=== PATIENT | female | born 2000 | race Caucasian/White ===

== ENCOUNTER 2023-03-25 00:06 | Inpatient (IN) | payer BC, MEDICAID, SELFPAY ==
[2023-03-25] VITALS (216 sets, daily range): BP systolic 80–156; BP diastolic 43–123; PULSE 25–178; RESP 18; TEMP 36.6–37.2; O2SAT 82–100; BMI 28.0
[2023-03-25 01:03] LABS: Basophils Percent Auto 0.3 % (0.2-1.2); Eosinophils Percent Auto 0.1 % (0-4.4); Hemoglobin 11.9 g/dL (12.0-15.0); Immature Granulocyte Absolute 0.02 K/mm3 (0.00-0.031); Immature Granulocyte Percent A 0.3 % (0-0.5); Lymphocytes Absolute Auto 2.29 K/mm3 (0.9-3.2); Lymphocytes Percent Auto 30.1 % (18.3-44.2); Mean Corpuscular Hemoglobin 33.1 pg (26-34); Mean Corpuscular Volume 97.2 fl (80-100); Mean Platelet Volume 11.9 fl (7.4-10.4); Monocytes Absolute Auto 0.7 K/mm3 (0.1-0.6); Monocytes Percent Auto 9.1 % (2.6-8.5); Neutrophils Absolute Auto 4.6 K/mm3 (1.3-6.7); Neutrophils Percent Auto 60.1 % (45.5-73.1); Platelet Count Result 135 k/mm3 (150-375); Red Cell Distribution Width 12.7 % (11.5-14.5); White Blood Count 7.6 K/mm3 (4.5-10.0)
[2023-03-25] MEDS: LACTATED RINGERS 1,000 ML 125 ML IV CONT ×3 (01:10→10:42)
[2023-03-25] MEDS: OXYTOCIN 30 UNITS/NS 500 ML 30 UNITS/500 ML BAG 6 UNITS IV CONT (01:10)
--- NOTE | 2023-03-25 01:11 | LDADM ---
This patient, Lucia Cannon, was admitted to Labor/Delivery/Recovery 105 on 03/25/23 at 00:06. Plans for labor, pain management and were discussed with patient. Patient/family oriented to hospital policies and general routines including ID bracelet, bed and alarms, visiting hours, pain management, procedures, bathroom and other care routines, personal items, smoking policy, room service/diet and guest tray routines, infant security routines, and visiting hours. Patient/Family are encouraged to report perceived risks to care and to ask questions if they do not understand what they are told or what they should do. See OBIX for further documentation.
--- NOTE | 2023-03-25 07:50 | WPDOBADMIT ---
Obstetrics - Admit Note Admission Note: record reviewed. No pertinent additions to the history and/or any subsequent changes in the physical findings that are not consistent with the expected course of the were found. IOL at 41 weeks gestation,SVE /-1 AROM large amount of clear odorless fluid, anticipate vaginal delivery Additions to the history and/or subsequent changes in the physical findings follow. None.
--- NOTE | 2023-03-25 09:37 | WPDANESEPP ---
Anes - Eval Pre Procedure Procedure: labor epidural Date/Time: 03/25/23 09:37 Surgeon: Cleveland Dominguez Preop Diagnosis: pain during labor Pre Op Diagnosis: IOL Patient Data Age: 22 Gender: F Height: 1.68 m Weight: 79 kg Last Vital Signs Temp 36.8 C 03/25/23 07:47 Pulse 81 03/25/23 09:31 BP 133/72 03/25/23 09:31 O2 Del Method Room Air 03/25/23 06:37 Allergies Allergy/AdvReac Type Severity Reaction Status Date / Time clindamycin Allergy Hives Verified 02/14/23 12:40 Home Medications Medication Instructions Recorded Confirmed Type ferrous sulfate 325 mg (65 mg 325 mg PO DAILY 02/14/23 02/14/23 History iron) tablet prenat.vits,brian,pga-ylhw-pxypc 1 tablet 02/14/23 History Laboratory Tests 03/25/23 00:51 WBC 7.6 K/mm3 (4.5-10.0) RBC 3.60 L M/mm3 (4.2-5.4) Hgb 11.9 L g/dL (12.0-15.0) Hct 35.0 L % (37.0-47.0) MCV 97.2 fl (80-100) MCH 33.1 pg (26-34) MCHC 34.0 g/dl (32-36) RDW 12.7 % (11.5-14.5) Plt Count 135 L k/mm3 (150-375) MPV 11.9 H fl (7.4-10.4) Immature Gran % (Auto) 0.3 % (0-0.5) Neut % (Auto) 60.1 % (45.5-73.1) Lymph % (Auto) 30.1 % (18.3-44.2) [place] % (Auto) 9.1 H % (2.6-8.5) Eos % (Auto) 0.1 % (0-4.4) Baso % (Auto) 0.3 % (0.2-1.2) Lymph # (Auto) 2.29 K/mm3 (0.9-3.2) [place] # (Auto) 0.7 H K/mm3 (0.1-0.6) Eos # (Auto) 0.0 K/mm3 (0-0.3) Baso # (Auto) 0.0 K/mm3 (0.0-0.1) Abs Immat Gran (auto) 0.02 K/mm3 (0.00-0.031) Absolute Neuts (auto) 4.6 K/mm3 (1.3-6.7) Absolute Nucleated RBC 0.0 K/mm3 (0.0-0.012) Nucleated RBC % 0.0 % (0.0-0.2) RPR Pending Blood Type O Positive Antibody Screen Negative Patient hx anesthesia problems: none Family hx anesthesia problems: none Results Review: All pre-operative results and documents have been reviewed as part of the pre-operative evaluation. [facility] Family History Family History Other Patient denies significant medical history Social History Social History Smoking status: Former smoker Tobacco type: e-cigarettes/vaping Second hand tobacco smoke exposure: No Substance use: never Lack of Transportation: No Lack of Food: Never True Current Housing: I Have Housing Concerned About Future Housing: No Difficulty Paying Gas/Electric Bills: No Difficulty Paying for Meds: No Currently Unemployed: No Education: High School Diploma/GED Difficulty w/ Childcare or Family Care: No Spiritual care concerns: No Exam Day of Procedure 03/25/23 09:37 Patient weight: normal Heart: regular rate and rhythm Lungs: clear to auscultation Airway: Mallampati scale class II Neurological: alert and oriented
[2023-03-25 10:30] LABS: Rapid Plasma Reagin Non-Reactive (NonReactive)
--- NOTE | 2023-03-25 16:31 | PM.OBPRVD ---
OB - Delivery Note Procedure Delivery date: 03/25/23 Procedure: Induction method: AROM and Per Pitocin Protocol Route of delivery: Specimen: No Quantitative Blood Loss (ml): 125 Anesthesia type: Epidural Disposition: Floor Baby Date of : 03/25/23 Time of : 04:20 Weeks of gestation at delivery: 41 Infant gender: Female presentation: vertex position: Right Occiput Anterior Placenta delivery description: Spontaneous Cord Vessel Description: 3 Vessels, Nuchal Cord, Loose (x1), Clamped/Cut and Delayed Cord Clamping score one minute: 8 score five minutes: 8 Narrative: mother and baby skin to skin in stable condition
[2023-03-25] MEDS: OXYTOCIN 30 UNITS/NS 500 ML 30 UNITS/500 ML BAG 125 UNITS IV CONT (16:50)
[2023-03-25] MEDS: IBUPROFEN 600 MG TABLET PO (18:33)
--- NOTE | 2023-03-25 19:18 | PC.NURSE ---
Patient transferred to post room #281 via wheel chair. Support person present. Oriented to unit, room, information board, rooming in, admission packet and security measures. Patient verbalizes understanding.
[2023-03-26 00:15] VITALS: BP 126/74; PULSE 69; RESP 16; TEMP 36.6; O2SAT 98
[2023-03-26] MEDS: ACETAMINOPHEN 325 MG TABLET 650 MG PO ×3 (00:15→17:06)
[2023-03-26 03:50] VITALS: BP 110/72; PULSE 61; RESP 16; TEMP 36.7; O2SAT 99
[2023-03-26] MEDS: IBUPROFEN 600 MG TABLET PO (04:03)
[2023-03-26 04:44] LABS: Hematocrit 34.1 % (37.0-47.0); Hemoglobin 11.4 g/dL (12.0-15.0)
--- NOTE | 2023-03-26 07:13 | P.PNOB_ITS ---
OB - PN: Subj Subjective Date/time seen: 03/26/23 07:13 Patient comments: no complaints and pain well controlled baby status: doing well [place] feeding status: exclusively breast feeding Narrative: would like to see today. OB - PN: Obj Data Labs 03/26/23 03:53 Labs: Laboratory Results - last 24 hr 03/25/23 03/26/23 00:51 03:53 Hgb 11.4 L Hct 34.1 L RPR Non-reactive OB - PN A/P Plan day: 1 Plan: routine care Comments: consultation today home tomorrow Time Spent With Patient Time: Total time spent is greater than 50% in coordination of care (as documented) at patient's floor/unit and/or counseling patient: Time with patient: less than 15 minutes Exam Narrative: NAD abdomen soft, nontender, fundus firm below the umbilicus Extremities nontender, 1+ edema
--- NOTE | 2023-03-26 07:38 | WPDANLDPN2 ---
Anes-Prog Note L&D Date/Time: 03/26/23 07:38 Comfortable throughout: labor and delivery Neuraxial method: epidural Epidural/Spinal procedure site: clean & non-tender Neuro status: Neuro function grossly intact. Cardiovascular status: normal Respiratory status: normal Airway patency: baseline Mental status: baseline Post-Op hydration status: normal Vital Signs: Last Vital Signs Temp 36.7 C 03/26/23 03:50 Pulse 61 03/26/23 03:50 Resp 16 03/26/23 03:50 BP 110/72 03/26/23 03:50 Pulse Ox 99 03/26/23 03:50 O2 Del Method Room Air 03/26/23 03:50 Pain score (VAS): 07/17 I/O: Intake & Output 03/25/23 03/25/23 03/26/23 15:59 23:59 07:59 Intake Total 1999 Output Total 725 Balance 1999 - Post-procedural complaints: none Patient feedback: Patient satisfied with anesthetic care.
[2023-03-26 07:40] VITALS: BP 119/65; PULSE 69; RESP 16; TEMP 37; O2SAT 97
[2023-03-26] MEDS: MULTIVIT/MIN/PREN/FOL AC/IRON TABLET 1 TAB PO (08:37)
[2023-03-26] MEDS: DOCUSATE SODIUM 100 MG CAPSULE PO (08:38)
[2023-03-26] MEDS: WITCH HAZEL 40 PADS 1 PAD TOPICAL (08:41)
--- NOTE | 2023-03-26 09:52 | PC.NURSE ---
904 - 10 Introductions were made, then consulted with patient to assess needs related to . Mother led the conversation with her?plans to feed?her infant, the?experience so far with latching infant without pain. Infant appears content at this time with hands and face relaxed. Resources provided for inpatient with name written on the white board. Mother voiced understanding of information and will call if there is a request for assistance. [id number] Consulted with patient to assess needs related to after mother called for assistance. Mother works well with her infant demonstrating the latched to the left breast using cross cradle supporting with the C-hold. Reviewed working with infant, supporting breast and how to protect the nipples with an optimal deep latch, good positioning, and good hand washing. Mother states the latch feels pinchy . Demonstrated how to detach from the breast. Nipple is misshaped and blisters on the tip are visualized. We attempted to latch infant a few more times using cross cradle and infant cause mother pain with misshaped nipples each time so was placed upright [id number] on mothers chest. Nipple care reviewed with optimal latch, good positioning and once feeding cues are visualized mother agreed to attempt the football positioning. Reviewed positioning and alignment, supporting breast, off-centered (asymmetrical latch) and leading with the chin with big, open, wide gape. latched optimally to the left breast in football position. Education given to mother of how to visualize suck/swallow ratios and listen for drinking at the breast. was able to maintain latch without discomfort to mother. Encouraged understanding the benefits of skin to skin, responding to feeding cues, frequencies of feeding 8-12 times in 24 hours (approximately 2-3 hours), duration of feedings, milk production, intake/output feeding sheet, preventing infection using clean hands when touching the breast and signs of adequate intake encouraging swallowing at the breast. Father of baby assisting with feeding mother breakfast, resources used to facilitate learning were used from the tool and mom/baby guide is in the room. Mother voiced understanding of the education shared, to call for assistance if the infant does not latch or if there is discomfort with with the next feeding. Reported to the primary RN.
[2023-03-26 12:06] VITALS: BP 123/74; PULSE 71; RESP 18; TEMP 37.2; O2SAT 98
[2023-03-26 19:45] VITALS: BP 123/78; PULSE 61; RESP 16; TEMP 37.6; O2SAT 98
[2023-03-27] MEDS: IBUPROFEN 600 MG TABLET PO ×2 (02:31→08:24)
--- NOTE | 2023-03-27 07:26 | PM.OBPNVD ---
OB - PN: Subj Subjective Date/time seen: 03/27/23 07:26 doing well pp day 2 plan d/c home OB - PN: Obj Data Labs 03/26/23 03:53 OB - PN A/P Plan day: 2 Plan: routine care and discharge home Time Spent With Patient Time: Total time spent is greater than 50% in coordination of care (as documented) at patient's floor/unit and/or counseling patient: Review of Systems Review of Systems: All systems reviewed & are unremarkable except as noted in HPI and below Exam Const: General: cooperative and healthy appearing Chest: Chest palpation & inspection: normal inspection of the chest Resp: Effort & Inspection: normal respiratory effort Cardio: Rate: regular rate Rhythm: regular rhythm GI: Other: soft Skin: General skin exam: normal color
--- NOTE | 2023-03-27 07:31 | PM.OBDSVD ---
DS: Admitting Diagnosis Discharge Date 03/27/23 Admitting Diagnosis IOL DS: Discharge Diagnosis Discharge Diagnosis (1) Vaginal delivery: Code(s): O80 - Encounter for full-term uncomplicated delivery Status: Acute OB - DS: Summary OB Procedures : None OB Procedures Intrapartum: Spontaneous Vag Delivery OB Procedures: : None Time Spent with Patient Time attestation: Total time spent providing and/or coordinating discharge services: Discharge Plan Discharge Attending physician on discharge: Kapil Dominguez Consulting providers: Kelin Salas Discharging Clinician: Kelin Salas Patient Disposition: Home, Self-Care Activity: pelvic rest Diet: regular Discharge Instructions: Education: Mom and Baby Guide Given to: Mother Follow-Up: Call your delivering provider's office for an appointment to be seen in: 4 Weeks Mom and baby should come to [facility] for the follow-up appointment. Appointment Date/Time: March 28, 2023 at 9:00 am What to expect at your follow-up visit: Blood Pressure Check Call [phone] if you are unable to keep your appointment time. BREAST CARE: * Wear a snug supportive bra. * For engorgement discomfort: Breast Feeding: * Apply warm moist washcloths * Express milk as needed to relieve engorgement * Wear loose clothing Bottle Feeding: * May apply ice packs * For sore nipples: * Identify correct latch-on * Apply warm moist washcloths before and after nursing * Air dry nipples after nursing * May apply Lansinoh cream to nipples /PERINEAL CARE: * Until bleeding stops, use your shayy bottle after urinating * Change your pad frequently throughout the day * You may take sitz baths several times a day (fill your bathtub with warm water and soak for 20 minutes.) Do NOT bathe in the water * No tub baths until seen by your physician - You may shower ACTIVITY: * Rest as much as possible. * Do not exercise or lift anything heavier than your baby (such as laundry or other children.) * Avoid stairs or driving as much as possible. * Do not put anything into the vagina. No douching, tampons, or sexual activity until seen by physician. NOTIFY PHYSICIAN IF YOU HAVE ANY QUESTIONS OR IF ANY OF THE FOLLOWING SYMPTOMS OCCUR: * If your perineum becomes red, swollen, or more painful than what you have experienced in the hospital. * If your vaginal bleeding becomes foul smelling. * If your vaginal bleeding becomes more heavy than a period or if your bleeding changes from pink to bright red. However, you may pass an occasional walnut-sized clot once or twice for the first week . * If you experience a sharp, shooting pain in you calves. * If you discover a hard, reddened area on your breast or if you experience flu-like symptoms. * If you have a fever of 100.4 or greater DIET: * Eat regular, well-balanced meals. * Drink plenty of fluids daily. If , drink to thirst. Patient Instructions: Antibiotic Form, How to Stop Smoking (DC) Stand Alone Forms: General Discharge Information Follow-up/Referrals: Kelin Salas CNM [Certified Nurse Cath Lab Tech] - 4 Weeks Discharge Medications: New ibuprofen 600 mg Tablet 600 mg PO Q6H PRN (Reason: Cramping) Qty: 30 0RF Continued ferrous sulfate 325 mg (65 mg iron) Tablet 325 mg PO DAILY #2 Tablet 1 tablet Date of admission: 03/25/23 00:06 Primary Care Provider: Orlando Cline Admitting Provider: Kapil Dominguez Attending physician on admission: Kapil Dominguez Condition: Stable
--- NOTE | 2023-03-27 08:00 | PC.NURSE ---
PT introductions made and plan of care discussed per post pain management, breast feeding, daily care activities and pending discharge to home. PT and spouse both recipients of such instructions and no barriers to learning identified at this time. PT received such instructions this shift via one to one discussion, mom baby care guide and demonstrations. PT verbalized understanding of such care.
[2023-03-27 08:15] VITALS: BP 137/80; PULSE 88; RESP 16; TEMP 37.1; O2SAT 97
[2023-03-27] MEDS: MULTIVIT/MIN/PREN/FOL AC/IRON TABLET 1 TAB PO (08:24)
[2023-03-27] MEDS: ACETAMINOPHEN 325 MG TABLET 650 MG PO (08:26)
[2023-03-27] MEDS: DOCUSATE SODIUM 100 MG CAPSULE PO (08:26)
[2023-03-27 08:28] VITALS: PULSE 88; RESP 16; O2SAT 97
--- NOTE | 2023-03-27 14:32 | PC.NURSE ---
PT discharged to home ambulatory accompanied by spouse and and walked to waiting car. Follow up appts confirmed
--- NOTE | 2023-03-27 16:44 | PC.NURSE ---
[phone] Consulted with patient to assess needs related to . Mother led conversation with her experience with feeding baby so far. Reviewed working with infant, supporting breast and how to protect the nipples with an optimal deep latch, good positioning, and good hand washing. Reviewed positioning and alignment, supporting breast, off-centered (asymmetrical latch) and leading with the chin with big, open, wide gape. latched optimally to the left breast in football position. Education given to mother of how to visualize suck/swallow ratios and listen for drinking at the breast. was able to maintain latch without discomfort to mother. Nipple care reviewed with optimal latch, good positioning and using clean hands when feeding her infant and touching her breast. Mother is feeding appropriately for growth of infant and understands stimulating infant to eat if needed. Infant has had appropriate feedings in the last 24 hours meets the outcomes for weight, output and jaundice at this time. Mother states she is confident to continue effectively her at home, when to call for assistance and denies any additional assistance or education at this time. Reinforced understanding of milk production, transition of milk, signs of adequate intake, transition of stool, prevention/relief of engorgement, plugged ducts, mastitis, responsive watching for feeding cues, the different methods of stimulating infant to breastfeed 2-3 hours after the start of the last feeding, community resources and when to call a provider using the resource of the mom and baby guide. Parents voiced understanding of the education shared. Reported to the primary RN.
[2023-03-28 08:53] VITALS: BP 128/73; PULSE 64; RESP 20; TEMP 36.6; O2SAT 98
== END 2023-03-27 14:32 | disposition home or self-care (01) | DRG 807 ==
LOC: ANHLDR 05:10 → ANHOB2 19:23
PROVIDERS: Advanced Practice Midwife; Admitting Provider Obstetrics & Gynecology; PCP Pediatrics; Visit Provider Obstetrics & Gynecology
DX: O69.81X0 Labor and delivery complicated by cord around neck, without compression, not applicable or unspecified (principal); Z37.0 Single live birth; Z3A.41 41 weeks gestation of pregnancy
CPT/HCPCS: 36415; 85014; 85018; 85025; 86592; 86850; 86900; 86901; A9270; J2590; J2795; J7120

== ENCOUNTER 2025-02-05 05:58 | Inpatient (IN) | payer BC, MEDICAID, SELFPAY ==
[2025-02-05] VITALS (44 sets, daily range): BP systolic 103–159; BP diastolic 49–70; PULSE 62–105; RESP 14–18; TEMP 36.2–37.4; O2SAT 94–100; BMI 25.2
--- NOTE | ~2025-02-05 | XR_ITS ---
XR abdomen/kub 1V 02/05/2025 07:32 INDICATION: Unable to count before surgery TECHNIQUE: KUB COMPARISON: None FINDINGS: Bowel gas pattern is nonspecific. No radiopaque foreign bodies identified. There is no evid ence of free air, mass, organomegaly, ascites or obstruction. No abnormal calculi are seen. The bon es appear intact. IMPRESSION: 1: No acute abdominal abnormality identified. Reviewed, dictated and finalized at location B.
--- OUTSIDE RECORDS SUMMARY | 2025-02-05 06:04 | XMS_ITS ---
Author Organization [facility] Address [address] [place] [address] Care Team Providers Care Twist Tester Name Role Phone Dr. Orlando Cline Primary Care Provider [phone] Migration, Provider Unavailable Unavailable Allergies Allergen (clinical drug ingredient) Drug/Non Drug Allergy documented on EMR Reaction Allergy Type Onset Date Status azithromycin Zithromax Hives Drug Allergy 06/10/2023 Act herb REASON FOR VISIT EMR-Yomi Encounters Encounter Location Date Provider Diagnosis [facility] [address] [place] [address] 06/07/2024 Provider Migration Plan Of Treatment No Information Progress Notes * Lucia CANNONDOB:2000 ([age] yo F)Acc No.[id number]:06/07/2024 Patient: Lucia HIGGINS :2000 A ge:23 Y S ex:Female Phone: Address:[facility] [address], [place], [address] Subjective: * Chief Complaints: * E MR-Yomi * OB History: M igrated OBHistory P regnancy History:: Anesthesia (Ans.): Epidural, D elivery Date (Delivery Date): 03/25/23, G A (wks) (GA): 41 w _ d, N umber of deliveries 37 weeks or greater (Full Term): 1, T ype of delivery (Type): Vaginal . * Allergies: Z ithromax: Hives - Allergy - Onset Date 06/10/2023 * * Date:
--- OUTSIDE RECORDS SUMMARY | 2025-02-05 06:04 | XMS_ITS | Patient Health Record ---
Author Organization [facility] Address [address] [place] [address] Care Team Providers Care Reading Specialist Name Role Phone Dr. Orlando Cline Primary Care Provider [phone] Migration, Provider Unavailable Unavailable Reason For Referral No Information Problems Problem Type SNOMED Code ICD Code Onset Dates Problem Status W/U Status Risk Notes Problem Depressive disorder (11830677) Depressive disorder, not elsewhere classified (311) 8 Active confirmed Problem Generalized abdominal pain (346480462) Abdominal pain, generalized (789.07) 9 Active confirmed Problem Mild major depression, single episode (34346575) Major depressive disorder, single episode, mild (F32.0) 3 Active confirmed Problem Ganglion cyst (494268920) Ganglion, unspecified site (M67.40) 4 Active confirmed Problem Anorexia (82086301) Anorexia (R63.0) 4 Active confirmed Problem Abnormal glucose level (141167614) Other abnormal glucose (R73.09) 4 Active confirmed Problem Abnormal level of blood mineral (870822537) Abnormal level of blood mineral (R79.0) 4 Active confirmed Problem Blood chemistry abnormal (976982666) Other specified abnormal findings of blood chemistry (R79.89) 4 Active confirmed Problem Adult health examination (612779288) Encounter for general adult medical examination without abnormal findings (Z00.00) 3 Active confirmed Problem Dietary management surveillance (583473811) Dietary counseling and surveillance (Z71.3) 4 Active confirmed Problem Major depression, single episode (98849344) Major depressive disorder, single episode, unspecified (296.20) 9 Problem resolved confirmed Problem Slow transit constipation (98157657) Slow transit constipation (564.01) 8 Problem resolved confirmed Problem Malaise and fatigue (822701568) Other malaise and fatigue (780.79) 8 Problem resolved confirmed Problem Fatigue (30761934) Other fatigue (R53.83) 8 Problem resolved confirmed Problem Constipation (84776149) Constipation, unspecified (K59.00) 8 Problem resolved confirmed Problem Major depression, single episode (34564445) Major depressive disorder, single episode, unspecified (F32.9) 9 Problem resolved confirmed Encounters Encounter Location Date Provider Diagnosis [address] [address] 06/06/2024 Provider Migration [address] [address] 06/07/2024 Provider Migration Plan Of Treatment No Information Insurance Providers Payer Name Payer Address Payer Phone Subscriber Number Group Number Insured Name Patient Relationship to Insured Coverage Start Date Coverage End Date [employer]BS[employer] [address] [place] [address] [id number] Angélica Dia Child - Insured has Financial Responsibility 3 [place] [employer] Public [employer] [facility] [address] [address] [place] [id number] Davis Lucia Self - patient is the insured 3
--- OUTSIDE RECORDS SUMMARY | 2025-02-05 06:04 | XMS_ITS ---
Author Organization [facility] Address [address] [place] [address] Care Team Providers Care Orange Peel Operator Name Role Phone Dr. Orlando Cline Primary Care Provider [phone] Migration, Provider Unavailable Unavailable REASON FOR VISIT EMR-Yomi Encounters Encounter Location Date Provider Diagnosis [facility] [address] [place] [address] 06/06/2024 Provider Migration Plan Of Treatment No Information Progress Notes * CASSANDRABernaheribertoDOB:2000 ([age] yo F)Acc No.[id number]:06/06/2024 Patient: Lucia HIGGINS :2000 A ge:23 Y S ex:Female Phone: Address: [address] , [address], [place], [address] Subjective: * Chief Complaints: * E MR-Yomi * * Date:
--- OUTSIDE RECORDS SUMMARY | 2025-02-05 06:04 | XMS_ITS | Clinical Summary ---
Author Organization [facility] Address [facility] [place] [address] Care Team Providers Care Mobile Ui Designer Name Role Phone Orlando Cline MD Primary Care Provider + [phone] Allergies Active Allergy Reactions Criticality Noted Date Comments Azithromycin Hives 02/01/2021 Medications No known medications Active Problems Problem Noted Date Diagnosed Date Behavioral disorder in pediatric patient 020 Herpes labialis 03/22/2015 Overview (07/29/2019): Note: bottom lip Date Onset: 03/22/2015 Estimated Date of Delivery Comme nts Yes 03/17/2023 Immunizations Immunization Administration Dates Next Due Dtap (Generic) 03/18/2008, 4,09/14/2003,06/17/2003, HPV 01/24/2015,06/11/2014,03/30/2014 Hepatitis A Vaccine - 2 Dose 01/24/2015,06/11/20 14 Hepatitis B 04/27/2004,06/17/2003,04/06/2003 Hib (Generic) 04/27/2004,06/17/2003,04/06/2003 MMR (Generic) 03/18/2008,01/24/2004 Meningococcal (Generic) 06/11/2014 Pneumococcal (Generic) 04/27/2004,01/24/2004,05/2003 Polio Ipv (Generic) 03/18/2008,09/14/2003,2002,04/06/2003 Tdap (Generic) 03/30/2014 Varicella Vaccine 03/30/2014,04/27/2004 Social History Tobacco Use Types Packs/Day Years Used Date Smoking Tobacco: Every Day Electronic Cigarettes Smokeless Tobacco: Never Tobacco Cessation:Ready to Q uit: Not Asked; Counseling Given: Yes Alcohol Use Standard Drinks/Week Comments Yes 0 (1 standard drink = 0.6 oz pur e alcohol) occasionally AUDIT-C Answer Date Recorded Q1: How often do you have a drink containing alc ohol? Never 10/13/2020 Average Number of Drinks Not on file 021 Frequency of Binge Drinking Not on file 02/2021 Estimated Date of Delivery Comme nts Yes 03/17/2023 Sex and Gender Information Value Date Recorded Sex Assigned at Not on file Legal Sex Female 7:51 AM CDT Gender Identity Not on file Sexual Orientation Not on file Last Filed Vital Signs Vital Sign Reading Time Taken Comments Blood Pressure 106/62 09/13/2022 3:12 PM MOTION PICTURE COMMENTATOR Pulse 97 09/13/2022 3:12 PM MOTION PICTURE COMMENTATOR Temperature 36.4 C (97.6 F) 09/13/2022 3:12 PM MOTION PICTURE COMMENTATOR Respiratory Rate 16 02/01/2021 2:09 PM CDT Oxygen Saturation 99% 09/13/2022 3:12 PM MOTION PICTURE COMMENTATOR Inhaled Oxygen Concentration - - Weight 59.4 kg (130 lb 14.4 oz) 09/13/2022 3:12 PM MOTION PICTURE COMMENTATOR Height 167.6 cm (5' 6) 09/13/2022 3:12 PM MOTION PICTURE COMMENTATOR Body Mass Index 21.13 09/13/2022 3:12 PM MOTION PICTURE COMMENTATOR Plan of Treatment Health Maintenance Due Date Last Done Comments Annual Physical 2005 Meningococcal B Vaccine (1 of 2 - Standard) 2018 Pneumococcal Vaccine: Pediatrics (0 to 5 Years) and At-Risk Patients (6 to 49 Years) (1 of 2 - PCV) 2021 04/27/2004, 01/24/2004, 06/17/2003 COVID-19 Vaccine ( - season) 2024 DTaP, Tdap and Td Vaccines (7 - Td or Tdap) 03/30/2024 03/30/2014, 03/18/2008, 04/27/2004, Additional history exists Cervical Cancer Screening Pap Smear (Age 21 to 29) Every 3 Years 08/02/2025 08/02/2022 Cervical Cancer Screening 08/02/2025 RSV Immunization or 60+ Years (1 - 1-dose 75+ series) 2077 Hepatitis B Vaccines Completed 04/27/2004, 06/17/2003, 04/06/2003 HPV Vaccines Completed 01/24/2015, 1211/2013, 03/30/2014 Meningococcal Vaccine Completed 05/10/2020, 014 Hepatitis C Completed 09/06/2022, 09/06/2022 RSV Immunizations Under 20 Months Aged Out No longer eligible based on patient's age to complete this topic Insurance [employer] [place] [employer] [facility] [employer] [facility] Care Teams Mobile Ui Designer Relationship Specialty Start Date End Date Orlando Cline MD [address] [place], [place] [phone] PCP - General PEDIATRICS 07/29/19
--- OUTSIDE RECORDS SUMMARY | 2025-02-05 06:05 | XMS_ITS ---
Author Organization [facility] Address [address] [place] [id number] Care Team Providers Care Principal Clerk Typist Name Role Phone Dr. Orlando Cline Primary Care Provider [phone] REASON FOR VISIT Cyst on palm Vital Signs Temperature 97.9 degrees Fahrenheit 01/28/20 24 Heart Rate 142 /min 01/28/2024 Oximetry 98 % 01/28/2024 Encounters Encounter Location Date Provider Diagnosis [address] [id number] 01/28/2024 Dr. Orlando Cline Ganglion, unspecified site M67.40 Assessments Encounter Date Diagnosis (ICD Code) Assessment Notes Treatment Notes Treatment Clinical Notes Section Notes 01/28/2024 Ganglion, unspecified site (ICD-10 - M67.40) Plan Of Treatment No Information Progress Notes * Lucia TRUJILLODOB:2000 ([age] yo F)Acc No.[id number]:01/28/2024 Patient: Lucia Barry Provider: Carlos A Cline MD :2000 A ge:23 Y S ex:Female Date:01/28/2024 Phone: Address:[facility] , [address], [id number] Subjective: * Chief Complaints: * C yst on palm Objective: * Vitals: H R: 142 /min, Temp: 97.9 F, Oxygen sat %: 98 %. Assessment: * Assessment: 1. G anglion, unspecified site - M67.40 S pecify :Src Diagnosis Name: Ganglion cyst * Electronic signature of Dr. Orlando Cline on 02/05/2025 at 06:04 AM CDT Sign off status: Pending * Provider: Carlos A Cline MD Date: 0 01/28/2024 Generated for Laquita carson/Samira/Maxwell on: 0 02/05/2025 06:04 AM CDT
--- OUTSIDE RECORDS SUMMARY | 2025-02-05 06:05 | XMS_ITS | Clinical Summary ---
Author Organization [facility] Address [address] [place] [address] Care Team Providers Care Technical Manager Name Role Phone Unavailable Primary Care Provider Unavailabl e Source Comments [facility],non-owned Affiliates and Associated Physician Practices is amultiple site organization consisting of ambulatory clinics and hospital sitesin [place], [place], [place] and [place]. This disclosure is being madepursuant to the Care Everywhere program and may not contain all information available regarding this patient. 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 Gender Identity Not on file Sexual Orientation Not on file Plan of Treatment Health Maintenance Due Date Last Done Comments HIV SCREENING 2017 HPV VACCINE (1 - 3-dose series) 2017 CHLAMYDIA/GONORRHEA SCREENING 2018 MENINGOCOCCAL (Group B) VACC INE SHARED DECISION-MAKING (1 of 2 - Standard) 2018 HEPATITIS C SCREENING 11/24/2020 DTAP/TDAP/TD VACCINES (1 - Tdap) 2021 HEPATITIS B VACCINE (1 of 3 - 19+ 3-dose series) 2021 COVID-19 VACCINE (1 - 2023-2 5 season) 2024 DEPRESSION SCREENING 07/08/2024 INFLUENZA VACCINE (#1) 2025 ZOSTER VACCINE (1 of 2) 2052 HIB VACCINE Aged Out No longer eligi ble based on patient's age to complete this topic MENINGOCOCCAL GROUPS A/C/Y/W VACCINE Aged Out No longer eligible b ased on patient's age to complete this topic PNEUMOCOCCAL VACCINE Aged Out No long er eligible based on patient's age to complete this topic Insurance [facility]
[2025-02-05] MEDS: LACTATED RINGERS 1,000 ML 125 ML IV CONT (06:51)
[2025-02-05] MEDS: TERBUTALINE SULFATE 1 MG/ML VIAL 0.25 MG SUB-Q (06:51)
[2025-02-05] MEDS: ceFAZolin 2 GM in SODIUM CHLORIDE 0.9% IV 50 ML 100 ML IVPB (07:01)
--- NOTE | 2025-02-05 07:01 | S_PTH ---
PATIENT: Lucia Cannon LOC: ANHOB2 U#:[id number] AGE/SX: 24/F ROOM: 282 RE02/05/[address]: Sigifredo Dominguez MD : 2000 BED: 00 DIS: 02/08/2025 SPEC #: [id number] RECD: 02/08/25 11:57 STATUS: TANIA REQ #: [id number] SPIKE: 02/05/25 07:[address]: Sigifredo Dominguez DEPT: [facility] Surgical RECD BY: Kiera Quezada ENTERED: 02/08/25 11:57 SP TYPE: Surgical OTHR DR: CHIQUITA Garcia MD Tissues: A - Placenta Procedures: Hematoxylin and Eosin Stain Gross and Microscopic Level 5
[2025-02-05 07:02] LABS: Hematocrit 33.0 % (37.0-47.0); Hemoglobin 10.6 g/dL (12.0-15.0); Immature Granulocyte Percent A 0.5 % (0-0.5); Lymphocytes Absolute Auto 2.97 K/mm3 (0.9-3.2); Mean Corpuscular HGB Conc 32.1 g/dl (32-36); Mean Corpuscular Hemoglobin 32.2 pg (26-34); Mean Corpuscular Volume 100.3 fl (80-100); Nucleated Red Blood Cells Absolute Auto 0.000 K/mm3 (0.0-0.012); Nucleated Red Blood Cells Perc 0.0 % (0.0-0.2); Platelet Count Result 179 k/mm3 (150-375); Red Blood Count 3.29 M/mm3 (4.2-5.4); White Blood Count 9.5 K/mm3 (4.5-10.0)
--- NOTE | 2025-02-05 07:29 | W.PM.OBCSD ---
OB - Delivery Note Procedure Delivery date: 02/05/25 Pre-op diagnosis: Non-Reassuring Status Post-op Diagnosis: Same Procedure Performed: Primary Surgeon: Sigifredo Dominguez MD Anesthesia type: Epidural Description of Procedure/Findings: The patient was taken the operating room.? She was prepped and draped in dorsal supine position with a leftward tilt.? This was done after spinal anesthetic was applied.? A low-transverse skin incision was made and carried down till of the fascia with the knife.? The fascial incision was made with the knife.? The fascial incision was extended laterally with Fountain scissors.? The fascia was tented upward superiorly and inferiorly the rectus muscles were dissected off bluntly.? The rectus muscles were the midline.? The preperitoneal fat and peritoneum were dissected open bluntly at the superior aspect of the rectus muscles.? The peritoneal incision was extended superior and inferior with good position of bladder.? The uterine incision was made with a scalpel down to the level of the amniotic cavity.? The amniotic cavity was entered bluntly.? The infant was delivered.? The cord was clamped and cut and the infant was handed off to waiting pediatric staff.? Cord bloods were obtained.? The placenta was removed manually.? The uterus was exteriorized.? The uterus was cleared of all clots, debris and membranes.? The uterus was closed in 0 Vicryl running lock fashion.? An imbricating over a was placed along the incision line as well.? The uterus was returned to the abdomen.? The gutters were cleared of all clots and debris.? The fascia was closed with 0 Vicryl running fashion.? The subcutaneous tissue was irrigated pinpoint bleeders were cauterized.? The skin was closed with subcuticular absorbable krysten.? The skin incision line was covered with glue.? The patient tolerated the procedure well.? She has taken recovery room in stable condition.? Sponge lap and needle counts were correct x2.? Estimated Blood Loss: 300 Complications: No immediate complications Condition: Stable Disposition: Floor
--- NOTE | 2025-02-05 07:35 | P.HP_ITS ---
H&P: HPI History of Present Illness Date/Time: 02/05/25 07:35 Chief Complaint: Term Narrative: This patient is a 24-year-old multiparous female at term who presented for induction of labor, elective induction. Immediately heart tones were nonreassuring and we moved quickly for stat delivery. The patient understands the details of the procedure. The procedure has been explained in detail. She understands the risks. She understands that injuries may occur that result in hospitalization, more surgery, and severe illness. She understands risk of hemorrhage and infection. She denies any chest pain or shortness of breath. She denies any nausea, vomiting, fever, chills. Review of Systems Review of Systems: All systems reviewed & are unremarkable except as noted in HPI and below Constitutional: Constitutional: Denies chills, Denies fatigue, Denies fever(s) and Denies weakness Eyes: Eyes: Denies blurry vision, Denies change in vision, Denies loss of peripheral vision, Denies loss of vision, Denies other visual disturbances and Denies eye pain ENT: Denies vertigo, Denies dizziness, Denies hearing loss, Denies mouth pain, Denies nasal obstruction, Denies neck mass and Denies neck pain Cardiovascular: Cardiovascular: Denies chest pain, Denies diaphoresis, Denies syncope, Denies leg edema and Denies dyspnea Respiratory: Respiratory: Denies chest congestion, Denies cough, Denies hemoptysis, Denies dyspnea and Denies wheezing Gastrointestinal: Gastrointestinal: Denies abdominal pain, Denies constipation, Denies diarrhea, Denies nausea and Denies vomiting Genitourinary: Genitourinary: Denies hematuria, Denies change in libido, Denies nocturia, Denies genital lesions, Denies flank pain and Denies urinary urgency Musculoskeletal: Musculoskeletal: Denies abnormal gait, Denies back pain, Denies myalgias, Denies arthralgias, Denies joint swelling, Denies muscle weakness and Denies neck pain Integumentary/Breasts: Skin/Breast: Denies swelling, Denies breast pain, Denies breast mass, Denies dry skin, Denies nipple discharge, Denies unusual bruising and Denies jaundice Neurologic: Denies Neuro-related abnormal movements, Denies Abnormal speech present, Denies abnormal gait, Denies behavioral changes, Denies confusion, Denies vertigo, Denies dizziness, Denies syncope, Denies loss of vision, Denies memory loss, Denies convulsions and Denies weakness Psychiatric: Psychiatric: Denies abnormal sleep pattern, Denies behavioral changes, Denies change in libido, Denies confusion, Denies depression, Denies anhedonia and Denies memory loss Endocrine: Endocrine: Reports no additional endocrine complaints, Denies change in libido and Denies fatigue Hematologic/Lymphatic: Hematologic/Lymphatic: Reports no additional hematologic/lymphatic complaints Allergic/Immunologic: Allergic/Immunologic: Reports no additional allergic/immunologic complaints and Denies wheezing [facility] Family History Family History (Updated 01/04/25 @ 13:42 by Ashtyn Caballero RN) Mother Thyroid disorder Sibling Epilepsy Sibling Anxiety Other Patient denies significant medical history Social History Social History Smoking status: Former smoker Tobacco type: e-cigarettes/vaping Second hand tobacco smoke exposure: No Substance use: never Lack of Transportation: No Lack of Food: Never True Current Housing: I Have Housing Concerned About Future Housing: No Difficulty Paying Gas/Electric Bills: No Difficulty Paying for Meds: No Currently Unemployed: No Education: High School Diploma/GED Difficulty w/ Childcare or Family Care: No Spiritual care concerns: No Meds Home Medications and Allergies Home Medications ?Medication ?Instructions ?Recorded ?Confirmed ?Type prenat.vits,brian,auq-pnqk-tllnr 1 tablet 02/14/23 History Allergies Allergy/AdvReac Type Severity Reaction Status Date / Time azithromycin Allergy Severe Hives Verified 01/04/25 13:51 Vital Signs Vital Signs - 24 hr 02/05/25 06:45 02/05/25 06:50 Pulse Oximetry 100 100 Exam Const: General: cooperative, healthy appearing, comfortable and no acute distress Orientation/consciousness: oriented to person, oriented to place and oriented to time HENMT: Head: normal to inspection Ears: external ears normal Face/Nose/Sinus: Normal external nose present and normal facial exam Face and sinus: normal facial exam Eyes: General: appearance normal, both eyes and all related structures Neck: Neck: normal visual inspection, trachea midline and supple Resp: Auscultation: clear to auscultation bilaterally, no crackles, no rales, no rhonchi and no wheezes Cardio: Rate: regular rate Rhythm: regular rhythm Heart sounds: no click, no murmurs and no rubs GI: GI Palp: No abdominal tenderness, No Soft to palpation, No Tenderness to palpation present (GI) and No Palpable mass present Auscultation: normal bowel sounds Skin: General skin exam: normal color and no rashes or lesions noted Neuro: General: oriented to person, oriented to place and oriented to time Extrem: General: normal to inspection, no joint enlargement, no clubbing, cyanosis or edema, no pedal edema and no calf tenderness Psych: Appearance: grossly normal Mental Status: mental status grossly normal Speech and movement: Normal speech and movement present H&P: Results Labs Labs: Short CBC 02/05/25 Range/Units 06:38 WBC 9.5 (4.5-10.0) K/mm3 Hgb 10.6 L (12.0-15.0) g/dL Hct 33.0 L (37.0-47.0) % Plt Count 179 (150-375) k/mm3 Assessment and Plan Assessment and plan (1) Non-reassuring status, delivered, current hospitalization: Code(s): O75.89 - Other specified complications of labor and delivery Status: Acute Plan This patient is a 24-year-old multiparous female at term who presented for induction of labor, elective induction. Immediately heart tones were nonreassuring and we moved quickly for stat delivery.
--- NOTE | 2025-02-05 07:37 | WPDHPUPDATE1 ---
History and Physical Update Update Date/Time: 02/05/25 07:37 History and Physical has been reviewed, including an updated exam of the patient. There are NO changes in the patient's condition. Risks, benefits, and alternatives have been discussed and questions answered. Patient agrees to proceed with procedure.
[2025-02-05 07:39] LABS: Syphilis IgG/IgM Antibody Non-Reactive (Nonreactive)
--- NOTE | 2025-02-05 07:39 | WPDANESEPPF ---
Anes - Initial Pre Proc Eval Date/Time: 02/05/25 07:39 Surgeon: Sigifredo Dominguez MD Pre Op Diagnosis: IOL Patient Data Age: 24 Gender: F Height: Weight: Last Vital Signs Pulse Ox 100 02/05/25 06:50 Allergies Allergy/AdvReac Type Severity Reaction Status Date / Time azithromycin Allergy Severe Hives Verified 01/04/25 13:51 Home Medications ?Medication ?Instructions ?Recorded ?Confirmed ?Type prenat.vits,brian,iqf-gjuj-lmchk 1 tablet 02/14/23 History Laboratory Tests 02/05/25 06:38 WBC 9.5 K/mm3 (4.5-10.0) RBC 3.29 L M/mm3 (4.2-5.4) Hgb 10.6 L g/dL (12.0-15.0) Hct 33.0 L % (37.0-47.0) MCV 100.3 H fl (80-100) MCH 32.2 pg (26-34) MCHC 32.1 g/dl (32-36) RDW 12.8 % (11.5-14.5) Plt Count 179 k/mm3 (150-375) MPV 11.4 H fl (7.4-10.4) Immature Gran % (Auto) 0.5 % (0-0.5) Neut % (Auto) 59.7 % (45.5-73.1) Lymph % (Auto) 31.3 % (18.3-44.2) [place] % (Auto) 7.7 % (2.6-8.5) Eos % (Auto) 0.4 % (0-4.4) Baso % (Auto) 0.4 % (0.2-1.2) Lymph # (Auto) 2.97 K/mm3 (0.9-3.2) [place] # (Auto) 0.7 H K/mm3 (0.1-0.6) Eos # (Auto) 0.0 K/mm3 (0-0.3) Baso # (Auto) 0.0 K/mm3 (0.0-0.1) Abs Immat Gran (auto) 0.05 H K/mm3 (0.00-0.031) Absolute Neuts (auto) 5.7 K/mm3 (1.3-6.7) Absolute Nucleated RBC 0.000 K/mm3 (0.0-0.012) Nucleated RBC % 0.0 % (0.0-0.2) Blood Type O Positive Antibody Screen Pending Patient hx anesthesia problems: none Family hx anesthesia problems: none Results Review: All pre-operative results and documents have been reviewed as part of the pre-operative evaluation. [facility] Family History Family History Mother Thyroid disorder Sibling Epilepsy Sibling Anxiety Other Patient denies significant medical history Social History Social History Smoking status: Former smoker Tobacco type: e-cigarettes/vaping Second hand tobacco smoke exposure: No Substance use: never Lack of Transportation: No Lack of Food: Never True Current Housing: I Have Housing Concerned About Future Housing: No Difficulty Paying Gas/Electric Bills: No Difficulty Paying for Meds: No Currently Unemployed: No Education: High School Diploma/GED Difficulty w/ Childcare or Family Care: No Spiritual care concerns: No Anes - Eval Final PreProcedure Day of Procedure 02/05/25 07:39 Patient weight: overweight Heart: tachycardia Lungs: clear to auscultation Airway: Mallampati scale class II Neurological: alert and oriented ASA classification: II Emergent: yes Anesthetic plan: proceed Anesthesia type and monitoring: general ETT and standard monitoring Results Review: All pre-operative results and documents have been reviewed as part of the pre-operative evaluation. Informed Consent: The patient's anesthetic plan and its attendant risks and benefits were discussed with the patient/family/POA. Questions were solicited and answers provided to the satisfaction of the patient/family/POA.
[2025-02-05] MEDS: MORPHINE SULFATE INJ (*CRX) 10 MG/ML AMP 3 MG IV PUSH ×4 (07:53→08:58)
[2025-02-05] MEDS: OXYTOCIN 30 UNITS/NS 500 ML 30 UNITS/500 ML BAG 125 UNITS IV CONT (08:48)
[2025-02-05] MEDS: cefoTEtan DISODIUM INJ 2 GM in DEXTROSE 5% IN WATER 50 ML IVPB ×2 (08:50→21:35)
[2025-02-05] MEDS: MORPHINE SULFATE PCA (*CRX) 30 MG/30 ML SYR IV CONT (09:26)
--- NOTE | 2025-02-05 10:38 | OBPPTRN ---
Patient transferred to post room #282 via stretcher. Support person- spouse Armando present. Oriented to unit, room, information board, rooming in, admission packet and security measures. Patient verbalizes understanding.
--- NOTE | 2025-02-05 11:02 | PC.NURSE ---
Nursery phone number provided to pt to call for updates on in lvl 2 nursery
[2025-02-05] MEDS: SIMETHICONE 80 MG TAB.CHEW PO (11:55)
[2025-02-05] MEDS: DOCUSATE SODIUM 100 MG CAPSULE PO ×2 (11:55→17:28)
[2025-02-05] MEDS: MULTIVIT/MIN/PREN/FOL AC/IRON TABLET 1 TAB PO (11:55)
[2025-02-05] MEDS: KETOROLAC 15 MG/ML VIAL (*BKC) IV PUSH ×3 (11:55→23:28)
[2025-02-05] MEDS: ACETAMINOPHEN 500 MG TABLET 1000 MG PO ×3 (11:55→23:28)
[2025-02-05] MEDS: DEXTROSE 5%/0.45% SOD CHL 1,000 ML 125 ML IV CONT ×2 (13:15→21:35)
--- NOTE | 2025-02-05 13:54 | LDADM ---
This patient, Lucia Cannon, was admitted to OB 2nd Floor Room 282 on 02/05/25 at 05:58. Plans for labor, pain management and were discussed with patient. Patient/family oriented to hospital policies and general routines including ID bracelet, bed and alarms, visiting hours, pain management, procedures, bathroom and other care routines, personal items, smoking policy, room service/diet and guest tray routines, infant security routines, and visiting hours. Patient/Family are encouraged to report perceived risks to care and to ask questions if they do not understand what they are told or what they should do. See OBIX for further documentation.
--- NOTE | 2025-02-05 17:30 | PC.NURSE ---
Breast pump provided due to [patient request]. Instructions given on cleaning, care, usage, that there should be no pain, pumping schedule for milk production, collection, and storage of human milk. Patient was assessed for correct placement, flange size, to pump for adequate milk production every 3 hours (8 times in 24 hours) 1-2 times at night. Mother voiced understanding of the education shared along with mom/baby guide and the pump measurement, flange fit handout for additional resource information. Reported to the Primary RN.
[2025-02-06 02:04] VITALS: BP 122/58; PULSE 72; RESP 18; TEMP 36.7; O2SAT 98
[2025-02-06 02:05] VITALS: RESP 18; O2SAT 98
[2025-02-06 04:30] VITALS: BP 109/53; PULSE 69; RESP 18; TEMP 36.7; O2SAT 98
[2025-02-06 05:12] LABS: Hematocrit 24.8 % (37.0-47.0); Hemoglobin 7.9 g/dL (12.0-15.0); Immature Granulocyte Percent A 0.5 % (0-0.5); Immature Platelet Fraction Pct 7.0 % (0.9-11.2); Lymphocytes Absolute Auto 1.40 K/mm3 (0.9-3.2); Mean Corpuscular HGB Conc 31.9 g/dl (32-36); Mean Corpuscular Hemoglobin 31.9 pg (26-34); Mean Corpuscular Volume 100.0 fl (80-100); Nucleated Red Blood Cells Absolute Auto 0.000 K/mm3 (0.0-0.012); Nucleated Red Blood Cells Perc 0.0 % (0.0-0.2); Platelet Count Result 133 k/mm3 (150-375); Red Blood Count 2.48 M/mm3 (4.2-5.4); White Blood Count 6.5 K/mm3 (4.5-10.0)
[2025-02-06] MEDS: ACETAMINOPHEN 500 MG TABLET 1000 MG PO ×4 (05:20→23:27)
[2025-02-06] MEDS: IBUPROFEN 600 MG TABLET PO ×4 (05:20→23:27)
[2025-02-06] MEDS: oxyCODONE HCL (*CRX) 5 MG TAB IR PO ×3 (06:34→20:50)
[2025-02-06 08:25] VITALS: BP 125/69; PULSE 71; RESP 16; TEMP 36.8; O2SAT 97
[2025-02-06] MEDS: cefoTEtan DISODIUM INJ 2 GM in DEXTROSE 5% IN WATER 50 ML IVPB (08:38)
[2025-02-06] MEDS: DOCUSATE SODIUM 100 MG CAPSULE PO ×2 (08:38→16:01)
[2025-02-06] MEDS: MULTIVIT/MIN/PREN/FOL AC/IRON TABLET 1 TAB PO (08:38)
[2025-02-06] MEDS: LIDOCAINE 5% PATCH 1 PATCH TRANSDERM (08:40)
[2025-02-06] MEDS: ONDANSETRON INJ 4 MG/2 ML VIAL IV PUSH (09:22)
--- NOTE | 2025-02-06 11:37 | WPDANESPN ---
Anes - Prog Note Post-Op Date/Time: 02/06/25 11:37 Cardiovascular status: normal Respiratory status: normal Airway patency: baseline Mental status: baseline Post-Op hydration status: normal Vital Signs: Last Vital Signs Temp 98.2 F 02/06/25 08:25 Pulse 71 02/06/25 08:25 Resp 16 02/06/25 08:25 BP 125/69 02/06/25 08:25 Pulse Ox 97 02/06/25 08:25 O2 Del Method Room Air 02/06/25 08:25 O2 Flow Rate 6 02/05/25 07:45 Pain Score (VAS): 5 I/O: Intake & Output 02/05/25 02/06/25 02/06/25 23:59 07:59 15:59 Intake Total 2059 1504 Output Total 1425 1425 Balance 634 79 Laboratory Tests 02/06/25 05:03 02/06/25 05:03 WBC 6.5 RBC 2.48 L Hgb 7.9 L Hct 24.8 L MCV 100.0 MCH 31.9 MCHC 31.9 L RDW 12.9 Plt Count 133 L MPV 11.4 H Immature Gran % (Auto) 0.5 Neut % (Auto) 68.5 Lymph % (Auto) 21.6 [place] % (Auto) 9.0 H Eos % (Auto) 0.2 Baso % (Auto) 0.2 Lymph # (Auto) 1.40 [place] # (Auto) 0.6 Eos # (Auto) 0.0 Baso # (Auto) 0.0 Abs Immat Gran (auto) 0.03 Absolute Neuts (auto) 4.4 Absolute Nucleated RBC 0.000 Nucleated RBC % 0.0 % Immature Plt Fraction 7.0 Post-procedural complaints: nausea (no N/V until this morning. denies nausea in the immediate recovery phase) and vomiting Patient Feedback: Patient satisfied with anesthetic care.
[2025-02-06] MEDS: SIMETHICONE 80 MG TAB.CHEW PO (11:41)
--- NOTE | 2025-02-06 11:43 | P.PNOB_ITS ---
OB - PN: Subj Subjective Date/time seen: 02/06/25 11:43 Patient comments: no complaints, pain well controlled, tolerating diet and flatus present OB - PN: Obj Data Labs 02/06/25 05:03 Labs: Laboratory Results - last 24 hr 02/06/25 05:03 WBC 6.5 RBC 2.48 L Hgb 7.9 L Hct 24.8 L MCV 100.0 MCH 31.9 MCHC 31.9 L RDW 12.9 Plt Count 133 L MPV 11.4 H Immature Gran % (Auto) 0.5 Neut % (Auto) 68.5 Lymph % (Auto) 21.6 [place] % (Auto) 9.0 H Eos % (Auto) 0.2 Baso % (Auto) 0.2 Lymph # (Auto) 1.40 [place] # (Auto) 0.6 Eos # (Auto) 0.0 Baso # (Auto) 0.0 Abs Immat Gran (auto) 0.03 Absolute Neuts (auto) 4.4 Absolute Nucleated RBC 0.000 Nucleated RBC % 0.0 % Immature Plt Fraction 7.0 OB - PN A/P Plan day: 1 Comments: Post Op LTCS - no problems, routine recovery Time Spent With Patient Time: Total time spent is greater than 50% in coordination of care (as documented) at patient's floor/unit and/or counseling patient: Exam 2 Const: General: cooperative, healthy appearing, comfortable and no acute distress Resp: Auscultation: no crackles, no rales, no rhonchi and no wheezes Cardio: Rhythm: regular rhythm Heart sounds: no click and no murmurs GI: Inspection: non-distended Auscultation: normal bowel sounds Extrem: General: normal to inspection, no pedal edema and no calf tenderness
[2025-02-06 19:15] VITALS: BP 115/68; PULSE 68; RESP 18; TEMP 36.9; O2SAT 99
[2025-02-07] MEDS: ACETAMINOPHEN 500 MG TABLET 1000 MG PO ×4 (05:01→23:30)
[2025-02-07] MEDS: IBUPROFEN 600 MG TABLET PO ×4 (05:01→23:30)
[2025-02-07] MEDS: MULTIVIT/MIN/PREN/FOL AC/IRON TABLET 1 TAB PO (08:35)
[2025-02-07] MEDS: DOCUSATE SODIUM 100 MG CAPSULE PO ×2 (08:35→17:04)
[2025-02-07] MEDS: SIMETHICONE 80 MG TAB.CHEW PO ×3 (08:35→17:04)
[2025-02-07] MEDS: oxyCODONE HCL (*CRX) 5 MG TAB IR PO ×2 (08:36→21:55)
[2025-02-07 09:50] VITALS: BP 115/69; PULSE 66; RESP 16; TEMP 36.8; O2SAT 99
--- NOTE | 2025-02-07 10:49 | P.PNOB_ITS ---
OB - PN: Subj Subjective Date/time seen: 02/07/25 10:49 Patient comments: no complaints, pain well controlled, incisional pain, tolerating diet and flatus present OB - PN: Obj Data Labs 02/06/25 05:03 OB - PN A/P Plan day: 2 Plan: routine care Comments: POD#2 LTCS - no problems, Time Spent With Patient Time: Total time spent is greater than 50% in coordination of care (as documented) at patient's floor/unit and/or counseling patient: Exam 2 Const: General: comfortable, no acute distress and alert Resp: Effort & Inspection: normal respiratory effort Auscultation: no crackles, no rales and no rhonchi Cardio: Rate: regular rate Heart sounds: no click, no murmurs and no rubs GI: Inspection: non-distended Auscultation: normal bowel sounds Other: Incision - CDI Extrem: General: normal to inspection, no pedal edema and no calf tenderness
[2025-02-07] MEDS: LIDOCAINE 5% PATCH 1 PATCH TRANSDERM (11:06)
[2025-02-07 19:30] VITALS: BP 125/58; PULSE 58; RESP 18; TEMP 36.6; O2SAT 100
[2025-02-08] MEDS: ACETAMINOPHEN 500 MG TABLET 1000 MG PO ×2 (05:00→12:20)
[2025-02-08] MEDS: IBUPROFEN 600 MG TABLET PO ×2 (05:00→12:20)
[2025-02-08] MEDS: SIMETHICONE 80 MG TAB.CHEW PO ×2 (07:11→12:20)
[2025-02-08] MEDS: oxyCODONE HCL (*CRX) 5 MG TAB IR PO (07:12)
[2025-02-08] MEDS: DOCUSATE SODIUM 100 MG CAPSULE PO (07:12)
[2025-02-08] MEDS: MULTIVIT/MIN/PREN/FOL AC/IRON TABLET 1 TAB PO (07:12)
[2025-02-08 07:50] VITALS: BP 118/78; PULSE 65; RESP 18; TEMP 36.6; O2SAT 99
--- NOTE | 2025-02-08 09:57 | P.PNOB_ITS ---
OB - PN: Subj Subjective Date/time seen: 02/08/25 09:57 Interval history: pp day 3 doing well pain managed baby doing well OB - PN: Obj Data Labs 02/06/25 05:03 OB - PN A/P Plan day: 3 Plan: routine care and discharge home Time Spent With Patient Time: Total time spent is greater than 50% in coordination of care (as documented) at patient's floor/unit and/or counseling patient: Review of Systems 2 Review of Systems: All systems reviewed & are unremarkable except as noted in HPI and below Exam 2 Const: General: cooperative, healthy appearing and comfortable Chest: Chest palpation & inspection: normal inspection of the chest Resp: Effort & Inspection: normal respiratory effort GI: Other: incision CDI
--- NOTE | 2025-02-08 10:00 | PC.NURSE ---
Patient is and bottle feeding with expressed breast milk per her choice. She feels like baby's latch is more shallow today and we reviewed softening the breast prior to latching if needed. Reviewed standard discharge information with patient including monitoring for required output, transition of stools, feeding 8-12 times every 24 hours, milk production, and follow up at [facility] and with certified social workers in health care in the first week of life. Parents are encouraged to take the feeding log and continue to track feedings and output for the first week . Offered outpatient resources with WIC referral (patient already using WIC) and Services at [facility]. She has a breast pump at home. Patient has the Mom/Baby Guide for further education and reference for common concerns, phone numbers, and guidance on when to call the doctor. A feeding plan was added to the ?s discharge plan. Patient states that she has no further questions or concerns regarding .???
--- NOTE | 2025-02-08 10:01 | P.DS_ITS ---
DS: Admitting Diagnosis Discharge Date 02/08/25 Admitting Diagnosis IOL OB - DS: Summary OB Procedures : None OB Procedures Intrapartum: (emergent) OB Procedures: : None Peripartum Data Procedures: Procedures Operation Date: 02/05/25 06:50 Actual Procedure Side Surgeon p Section Not Applicable Sigifredo Dominguez MD Time Spent with Patient Time attestation: Total time spent providing and/or coordinating discharge services: DS: Data Data Completed and Pending Pending studies at discharge: Pending at discharge 02/05/25 07:01 Surgical [PTH] Routine Discharge Plan Discharge Attending physician on discharge: Sigifredo Dominguez Consulting providers: Elsie Salas Discharging Clinician: Elsie Salas Patient Disposition: Home Activity: pelvic rest Diet: regular Patient Instructions: Antibiotic Form Patient Language: Portuguese Stand Alone Forms: General Discharge Information Follow-up/Referrals: Sigifredo Dominguez MD [Physician] - Elsie Salas, CNM [Certified Nurse Mold Filler] - (1 week larissa 4 week elsie barros) Discharge Medications: New oxycodone 5 mg Tablet 5 mg PO Q4H PRN (Reason: Pain Rated 4-6) Qty: 25 0RF ibuprofen 600 mg Tablet 600 mg PO Q6HR Qty: 30 0RF No Action prenat.vits,brian,gbu-mhgz-ilnrr Tablet 1 tablet PO DAILY Date of admission: 02/05/25 05:58 Primary Care Provider: Orlando Cline Admitting Provider: Sigifredo Dominguez Attending physician on admission: Sigifredo Dominguez Condition: Stable
== END 2025-02-08 15:30 | disposition home or self-care (01) | DRG 788 ==
LOC: ANHLDR 07:13 → ANHOB2 13:04
PROVIDERS: Advanced Practice Midwife; Admitting Provider Obstetrics & Gynecology; PCP Pediatrics; Visit Provider Obstetrics & Gynecology
PROC: 10D00Z1 Extraction of Products of Conception, Low, Open Approach (ICD-10-PCS; CPT 59514; principal; 2025-02-05 06:50)
DX: O36.8330 Maternal care for abnormalities of the fetal heart rate or rhythm, third trimester, not applicable or unspecified (principal); Z37.0 Single live birth; Z3A.40 40 weeks gestation of pregnancy; O77.0 Labor and delivery complicated by meconium in amniotic fluid
CPT/HCPCS: 36415; 74018; 85025; 85055; 86593; 86850; 86900; 86901; 88307; J0690; A9270; J1885; J2270; J2405; J2590; J3010; J3105; J7120